=== PATIENT | female | born 1995 | race Hispanic/Latino ===

== ENCOUNTER 2021-05-17 15:38 | Emergency (ER) | payer MEDICARE, MEDICAID ==
--- NOTE | 2021-05-17 15:47 | Event Note ---
ED Screening Note ED Screening Note: CO CP SOB AND WOUND ON LEG VOMITING IN TRIAGE HX CHF- HELP ETC This initial assessment/diagnostic orders/clinical plan/treatment(s) is/are subject to change based on patients health status, clinical progression and re- assessment by fellow clinical providers in the ED. Further treatment and workup at subsequent clinical providers discretion. Patient/guardian urged not to elope from the ED as their condition may be serious if not clinically assessed and managed. Initial orders include: CARDS WORK UP
[2021-05-17 16:07] VITALS: BP 145/102
[2021-05-17] MEDS ORDERED: SULFAMETHOXAZOLE/TRIMETHOPRIM 800/160MG DS TAB PO ONE (16:51)
[2021-05-17] MEDS ORDERED: HYDROcodone/ACETAMINOPHEN 5-325 MG TAB PO ONE (16:51)
[2021-05-17] MEDS ORDERED: ONDANSETRON 4 MG ODT TAB PO ONE (16:52)
[2021-05-17 16:54] LABS: Basophils % (Auto) 0.7 % (0.0-1.8); Eosinophils # (Auto) 0.4 K/mm3 (0.0-0.4); Eosinophils % (Auto) 9.3 % (0.0-4.3); Hematocrit 26.4 % (30.3-42.9); Hemoglobin 8.5 gm/dl (10.1-14.3); Lymphocytes # (Auto) 1.2 K/mm3 (1.2-5.4); Lymphocytes % (Auto) 32.6 % (13.4-35.0); Mean Corpuscular HGB Conc 32 % (30-34); Mean Corpuscular Volume 82 fl (79-97); Monocytes # (Auto) 0.2 K/mm3 (0.0-0.8); Platelet Count 335 K/mm3 (140-440); Red Blood Count 3.23 M/mm3 (3.65-5.03); Red Cell Distribution Width 14.7 % (13.2-15.2)
--- NOTE | 2021-05-17 16:56 | Emergency Department Report ---
ED Chest Pain HPI - General Chief Complaint: Chest Pain Stated Complaint: CHESTPAIN,VOMITING, HOLE IN LEG Time Seen by Provider: 05/17/21 16:23 Source: patient, old records reviewed (No previous visits here) Mode of arrival: Ambulatory Limitations: No Limitations - History of Present Illness Initial Comments: 26-year-old female with past medical history hypertension, CHF, chronic kidney disease, lupus presents with possible complaints of chest pain, wound to posterior right thigh, and vomiting. All symptoms started this morning. Patient awake this morning with sharp left-sided chest pain and feel like her heart was racing. Left-sided chest pain described as moderate, Constant, sharp, worse with palpation with associated shortness of breath. Patient complains of intermittent heart racing. 2 episodes of nonbloody vomitus. Patient denies di arrhea or abdominal pain. For the past week she has had a wound to her posterior right thigh with purulent drainage. No complaints of fever but positive sweats. Denies history of PE/DVT. Patient is visiting here from out of town. She states her medications include hydralazine, Coreg, morphine, clonidine she has been compliant - Related Data Allergies Allergy/AdvReac Type Severity Reaction Status Date / Time nifedipine AdvReac Anaphylaxis Verified 05/17/21 15:46 Heart Score - HEART Score History: Slightly suspicious EKG: Normal Age: < 45 Risk factors: 1-2 risk factors Troponin: < normal limit HEART Score: 1 - EKG Read Time Time EKG Completed: 15:52 EKG Read Time: 15:57 ED Review of Systems ROS: Stated complaint: CHESTPAIN,VOMITING, HOLE IN LEG Other details as noted in HPI Comment: All other systems reviewed and negative ED Past Medical Hx - Past Medical History Hx Hypertension: Yes Hx Congestive Heart Failure: Yes Hx Seizures: Yes Additional medical history: HELP syndrome, LUPUS, kindey failure - Surgical History Additional Surgical History: tonsils/adenoids removed. cyst from L side of neck ED Physical Exam - General Limitations: No Limitations - Other Other exam information: General: No acute distress Head: Atraumatic Eyes: normal appearance ENT: Moist mucous membranes Neck: Normal appearance, no midline tenderness Chest: Clear to auscultation bilaterally. Reproducible left-sided anterior chest wall tenderness CV: Regular rate and rhythm Abdomen: Soft, normal bowel sounds, nontender, nondistended, no rebound or guarding Back: Normal inspection Extremity: full range of motion, no calf tenderness or edema. Approximately 2 cm right posterior thigh shallow wound with erythema and mild drainage Neuro: Alert O x 3, no facial asymmetry, speech clear, no gross motor sensory deficit Psych: Appropriate behavior Skin: Right posterior thigh wound with drainage ED Course Vital Signs 05/17/21 05/17/21 15:47 18:34 Temperature 98.6 F Pulse Rate 99 H Respiratory 18 18 Rate Blood Pressure 145/102 O2 Sat by Pulse 98 95 Oximetry - Reevaluation(s) Reevaluation #1: 05/17/21 21:12 I have been reviewing patient's results and V/Q is normal. As on the assumption patient was awaiting Doppler examination. I called Doppler since it has not been done since ordered and I was told that they have no order in the computer and they suspect [employer] issues. Then I was informed that at some point in time patient signed out AGAINST MEDICAL ADVICE. I was not informed nor is it documented with time patient signed out unfortunately. ED work-up here does not reveal acute chest pain emergency and patient will likely be discharged on antibiotics if her Doppler examination was negative for blood clot 05/17/21 21:14 I attempted to call pt but was told it was the wrong number JONNIE score - Jonnie Score Age > 65: (0) No Aspirin use within the Past 7 Days: (0) No 3 or more CAD Risk Factors: (0) No 2 or more Angina events in past 24 hrs: (0) No Known CAD with more than 50% Stenosis: (0) No Elevated Cardiac Markers: (0) No ST Deviation Greater than 0.5mm: (0) No JONNIE Score: 0 ED Medical Decision Making - Lab Data Result diagrams: 05/17/21 16:21 05/17/21 16:21 Lab Results 05/17/21 05/17/21 05/17/21 Range/Units 16:21 16:21 16:21 WBC 3.8 L (4.5-11.0) K/mm3 RBC 3.23 L (3.65-5.03) M/mm3 Hgb 8.5 L (10.1-14.3) gm/dl Hct 26.4 L (30.3-42.9) % MCV 82 (79-97) fl MCH 26 L (28-32) pg MCHC 32 (30-34) % RDW 14.7 (13.2-15.2) % Plt Count 335 (140-440) K/mm3 Lymph % (Auto) 32.6 (13.4-35.0) % [place] % (Auto) 5.0 (0.0-7.3) % Eos % (Auto) 9.3 H (0.0-4.3) % Baso % (Auto) 0.7 (0.0-1.8) % Lymph # (Auto) 1.2 (1.2-5.4) K/mm3 [place] # (Auto) 0.2 (0.0-0.8) K/mm3 Eos # (Auto) 0.4 (0.0-0.4) K/mm3 Baso # (Auto) 0.0 (0.0-0.1) K/mm3 Seg Neutrophils % 52.4 (40.0-70.0) % Seg Neutrophils # 2.0 (1.8-7.7) K/mm3 PT (12.2-14.9) Sec. INR (0.87-1.13) APTT (24.2-36.6) Sec. D-Dimer (0-234) ng/mlDDU Sodium 141 (137-145) mmol/L Potassium 4.4 (3.6-5.0) mmol/L Chloride 104.1 (98-107) mmol/L Carbon Dioxide 22 (22-30) mmol/L Anion Gap 19 mmol/L BUN 38 H (7-17) mg/dL Creatinine 2.6 H (0.6-1.2) mg/dL Estimated GFR 23 ml/min BUN/Creatinine Ratio 15 % Glucose 91 (65-100) mg/dL Lactic Acid (0.7-2.0) mmol/L Calcium 8.5 (8.4-10.2) mg/dL Total Bilirubin 0.20 (0.1-1.2) mg/dL AST 90 H (5-40) units/L ALT 56 (7-56) units/L Alkaline Phosphatase 101 (35-129) units/L Troponin T 0.026 (0.00-0.029) ng/mL Total Protein 7.1 (6.3-8.2) g/dL Albumin 3.3 L (3.9-5) g/dL Albumin/Globulin Ratio 0.9 % Lipase (13-60) units/L HCG, Qual Negative (Negative) Urine Color (Yellow) Urine Turbidity (Clear) Urine pH (5.0-7.0) Ur Specific [place] (1.003-1.030) Urine Protein (Negative) mg/dL Urine Glucose (UA) (Negative) mg/dL Urine Ketones (Negative) mg/dL Urine Blood (Negative) Urine Nitrite (Negative) Urine Bilirubin (Negative) Urine Urobilinogen (<2.0) mg/dL Ur Leukocyte Esterase (Negative) Urine WBC (Auto) (0.0-6.0) /HPF Urine RBC (Auto) (0.0-6.0) /HPF U Epithel Cells (Auto) (0-13.0) /HPF Urine Bacteria (Auto) (Negative) /HPF Urine Mucus /HPF 05/17/21 05/17/21 05/17/21 Range/Units 16:21 16:21 16:21 WBC (4.5-11.0) K/mm3 RBC (3.65-5.03) M/mm3 Hgb (10.1-14.3) gm/dl Hct (30.3-42.9) % MCV (79-97) fl MCH (28-32) pg MCHC (30-34) % RDW (13.2-15.2) % Plt Count (140-440) K/mm3 Lymph % (Auto) (13.4-35.0) % [place] % (Auto) (0.0-7.3) % Eos % (Auto) (0.0-4.3) % Baso % (Auto) (0.0-1.8) % Lymph # (Auto) (1.2-5.4) K/mm3 [place] # (Auto) (0.0-0.8) K/mm3 Eos # (Auto) (0.0-0.4) K/mm3 Baso # (Auto) (0.0-0.1) K/mm3 Seg Neutrophils % (40.0-70.0) % Seg Neutrophils # (1.8-7.7) K/mm3 PT 14.0 (12.2-14.9) Sec. INR 0.97 (0.87-1.13) APTT 40.7 H (24.2-36.6) Sec. D-Dimer 4629.32 H (0-234) ng/mlDDU Sodium (137-145) mmol/L Potassium (3.6-5.0) mmol/L Chloride (98-107) mmol/L Carbon Dioxide (22-30) mmol/L Anion Gap mmol/L BUN (7-17) mg/dL Creatinine (0.6-1.2) mg/dL Estimated GFR ml/min BUN/Creatinine Ratio % Glucose (65-100) mg/dL Lactic Acid 0.80 (0.7-2.0) mmol/L Calcium (8.4-10.2) mg/dL Total Bilirubin (0.1-1.2) mg/dL AST (5-40) units/L ALT (7-56) units/L Alkaline Phosphatase (35-129) units/L Troponin T (0.00-0.029) ng/mL Total Protein (6.3-8.2) g/dL Albumin (3.9-5) g/dL Albumin/Globulin Ratio % Lipase 52 (13-60) units/L HCG, Qual (Negative) Urine Color (Yellow) Urine Turbidity (Clear) Urine pH (5.0-7.0) Ur Specific [place] (1.003-1.030) Urine Protein (Negative) mg/dL Urine Glucose (UA) (Negative) mg/dL Urine Ketones (Negative) mg/dL Urine Blood (Negative) Urine Nitrite (Negative) Urine Bilirubin (Negative) Urine Urobilinogen (<2.0) mg/dL Ur Leukocyte Esterase (Negative) Urine WBC (Auto) (0.0-6.0) /HPF Urine RBC (Auto) (0.0-6.0) /HPF U Epithel Cells (Auto) (0-13.0) /HPF Urine Bacteria (Auto) (Negative) /HPF Urine Mucus /HPF 05/17/21 Range/Units Unknown WBC (4.5-11.0) K/mm3 RBC (3.65-5.03) M/mm3 Hgb (10.1-14.3) gm/dl Hct (30.3-42.9) % MCV (79-97) fl MCH (28-32) pg MCHC (30-34) % RDW (13.2-15.2) % Plt Count (140-440) K/mm3 Lymph % (Auto) (13.4-35.0) % [place] % (Auto) (0.0-7.3) % Eos % (Auto) (0.0-4.3) % Baso % (Auto) (0.0-1.8) % Lymph # (Auto) (1.2-5.4) K/mm3 [place] # (Auto) (0.0-0.8) K/mm3 Eos # (Auto) (0.0-0.4) K/mm3 Baso # (Auto) (0.0-0.1) K/mm3 Seg Neutrophils % (40.0-70.0) % Seg Neutrophils # (1.8-7.7) K/mm3 PT (12.2-14.9) Sec. INR (0.87-1.13) APTT (24.2-36.6) Sec. D-Dimer (0-234) ng/mlDDU Sodium (137-145) mmol/L Potassium (3.6-5.0) mmol/L Chloride (98-107) mmol/L Carbon Dioxide (22-30) mmol/L Anion Gap mmol/L BUN (7-17) mg/dL Creatinine (0.6-1.2) mg/dL Estimated GFR ml/min BUN/Creatinine Ratio % Glucose (65-100) mg/dL Lactic Acid (0.7-2.0) mmol/L Calcium (8.4-10.2) mg/dL Total Bilirubin (0.1-1.2) mg/dL AST (5-40) units/L ALT (7-56) units/L Alkaline Phosphatase (35-129) units/L Troponin T (0.00-0.029) ng/mL Total Protein (6.3-8.2) g/dL Albumin (3.9-5) g/dL Albumin/Globulin Ratio % Lipase (13-60) units/L HCG, Qual (Negative) Urine Color Yellow (Yellow) Urine Turbidity Hazy (Clear) Urine pH 5.0 (5.0-7.0) Ur Specific [place] 1.015 (1.003-1.030) Urine Protein 30 mg/dl (Negative) mg/dL Urine Glucose (UA) Neg (Negative) mg/dL Urine Ketones Neg (Negative) mg/dL Urine Blood Sm (Negative) Urine Nitrite Neg (Negative) Urine Bilirubin Neg (Negative) Urine Urobilinogen 2.0 (<2.0) mg/dL Ur Leukocyte Esterase Tr (Negative) Urine WBC (Auto) 11.0 H (0.0-6.0) /HPF Urine RBC (Auto) 57.0 (0.0-6.0) /HPF U Epithel Cells (Auto) 9.0 (0-13.0) /HPF Urine Bacteria (Auto) 1+ (Negative) /HPF Urine Mucus Few /HPF - EKG Data -: EKG Interpreted by Me EKG shows normal: sinus rhythm, intervals (TX interval normal), QRS complexes (QRS duration 85), ST-T waves (no stemi) Rate: normal - EKG Data When compared to previous EKG there are: no significant change - Radiology Data Radiology results: report reviewed Chest x-ray: No acute finding VQ scan: Low probability for pulmonary embolus - Medical Decision Making 26-year-old female presented with reproducible chest pain and shortness of breath with palpitations. Significant elevated D-dimer. VQ scan low probability for pulmonary embolism. Bilateral Doppler examination not performed prior to patient leaving AGAINST MEDICAL ADVICE. Apparently due to [employer] issues Doppler orders were not crossing over which was not until after patient left the department. Then I was informed that patient signed out AGAINST MEDICAL ADVICE at some point time during her evaluation. I am not clear why patient signed out AGAINST MEDICAL ADVICE. The person who answered the phone states that the number recorded on the demographic sheet does not belong to Ms. Thompson and there is no address on her demographic sheet. Patient may need Bactrim for both UA findings UTI and cellulitis of the leg. Unfortunately have no way to contact patient at this time. Are not any signs of sepsis or septic shock at time of my evaluation and patient has a history of chronic kidney disease. - Differential Diagnosis Costochondritis, PE, DVT, cellulitis, CHF, arrhythmia Critical Care Time: No Critical care attestation.: If time is entered above; I have spent that time in minutes in the direct care o f this critically ill patient, excluding procedure time. ED Disposition Clinical Impression: Costochondritis, Cellulitis of right leg, Chronic renal insufficiency, Elevated d-dimer, Chronic hypertension, Lupus, Anemia Disposition: 07 LEFT AGAINST MEDICAL ADVICE Is pt being admited?: No Condition: Stable Instructions: Hypertension (ED) Time of Disposition: 21:20
[2021-05-17 17:10] LABS: Bacteria,Urine 1+ /HPF (Negative); Bilirubin,Urine NEG (Negative); Blood,Urine SM (Negative); Color,Urine Yellow (Yellow); Mucus,Urine FEW /HPF
[2021-05-17 17:12] LABS: INR 0.97 (0.87-1.13)
[2021-05-17 17:13] LABS: Partial Thromboplastin Time 40.7 Sec. (24.2-36.6)
--- NOTE | 2021-05-17 17:27 | XRay Report ---
CHEST 2 VIEWS INDICATION / CLINICAL INFORMATION: CHEST PAIN. COMPARISON: None available. FINDINGS: SUPPORT DEVICES: None. HEART / MEDIASTINUM: No significant abnormality. LUNGS / PLEURA: No significant pulmonary or pleural abnormality. No pneumothorax. ADDITIONAL FINDINGS: No significant additional findings. IMPRESSION: 1. No acute findings. Signer Name: Bairon Brody MD Signed: 05/17/2021 5:23 PM Workstation Name: [id number]
[2021-05-17 17:30] LABS: Albumin 3.3 g/dL (3.9-5); Calcium 8.5 mg/dL (8.4-10.2)
--- NOTE | 2021-05-17 19:34 | Nuclear Medicine Report ---
NUCLEAR MEDICINE PERFUSION LUNG SCAN INDICATION / CLINICAL INFORMATION: CP, SOB, ELEVATED DDIMER. TECHNIQUE: 5.0 mCi of Tc-99m MAA were given by IV. COMPARISON: Chest radiograph dated 05/17/2021. FINDINGS: PERFUSION: No significant perfusion defects. ADDITIONAL FINDINGS: None. IMPRESSION: 1. Low probability for pulmonary embolism. Signer Name: Bairon Brody MD Signed: 05/17/2021 7:30 PM Workstation Name: [id number]
--- NOTE | 2021-05-18 11:56 | Electrocardiograph Report ---
[facility] Test Date: 2021-05-17 Test Time: 15:52:49 Pat Name: YARELI BAH Department: Room: Gender: F Cloth Layer: TV : 1995 Requested By: MAYRA AC Order Number: [id number] Reading MD: Wei Jerry Measurements Intervals [place] Rate: 90 P: 48 CO: 195 QRS: 22 QRSD: 85 T: 61 QT: 375 QTc: 459 Interpretive Statements Sinus rhythm Probable left atrial enlargement No previous ECG available for comparison Electronically Signed On 05-18-2021 11:56:25 EST by Wei Jerry
== END 2021-05-18 01:23 | disposition left against medical advice (07) ==
LOC: ED 15:38
DX: M94.0 Chondrocostal junction syndrome [Tietze] (principal); L03.115 Cellulitis of right lower limb; R79.1 Abnormal coagulation profile; M32.9 Systemic lupus erythematosus, unspecified; D64.9 Anemia, unspecified; I13.0 Hypertensive heart and chronic kidney disease with heart failure and stage 1 through stage 4 chronic kidney disease, or unspecified chronic kidney disease; N18.9 Chronic kidney disease, unspecified; I50.9 Heart failure, unspecified; Z98.890 Other specified postprocedural states; Z88.8 Allergy status to other drugs, medicaments and biological substances; Z79.899 Other long term (current) drug therapy
CPT/HCPCS: 36415; 71046; 78580; 80053; 81001; 82140; 83690; 84484; 84703; 85025; 85379; 85610; 85730; 87086; 93005; 99284; A9540; J3490; Q0162